=== PATIENT | male | born 1945 | race Caucasian/White ===

== ENCOUNTER 2018-05-31 18:02 | Emergency (ER) | payer MEDICARE, BC ==
[~2018-05-31] VITALS: Ht 172.7 cm; Wt 80.9 kg
[2018-05-31 18:03] VITALS: Ht 172.7 cm; Wt 80.9 kg
[2018-05-31] MEDS ORDERED: NORVASC2.5 MG (18:04)
[2018-05-31] MEDS ORDERED: COZAAR25 MG (18:04)
[2018-05-31] MEDS ORDERED: CATAPRES0.1 MG (18:04)
[2018-05-31 18:17] LABS: BASOPHILS 0.4 % (0-2); EOSINOPHILS 2.1 % (0-7); HEMATOCRIT 39.8 % (42.0-54.0); HEMOGLOBIN 13.4 g/dL (13.5-17.5); IMMATURE GRANULOCYTES 0.6 % (0-5); LYMPHOCYTES 16.6 % (15-50); MCH 30.2 pg (26.0-34.0); MCHC 33.7 g/dL (31.0-37.0); MCV 89.8 fL (80.0-100.0); MONOCYTES 8.1 % (2-11); NEUTROPHILS 72.2 % (40-80); PLATELET COUNT 187 10x3/uL (130-400); RBC 4.43 10x6/uL (4.20-6.10); RDW 12.2 % (11.5-14.5); WBC 8.3 10x3/uL (4.8-10.8)
[2018-05-31 18:37] LABS: ALBUMIN 3.5 g/dL (3.4-5.0); ALKALINE PHOSPHATASE 54 U/L (46-116); ALT (SGPT) 20 U/L (10-68); CALC OSMOLALITY 281 mosm/kg (275-300); CALCIUM 8.8 mg/dL (8.5-10.1); CHLORIDE - SERUM 102 mmol/L (98-107); GLUCOSE 193 mg/dL (74-106); POTASSIUM - SERUM 4.1 mmol/L (3.5-5.1); PROTEIN - SERUM 7.1 g/dL (6.4-8.2); SODIUM 138 mmol/L (136-145); UREA NITROGEN 15 mg/dL (7-18); eGFR NON AFRICAN AMERICAN 78 mL/min (90-120)
[2018-05-31 18:49] LABS: CKMB 0.6 U/L (0.0-3.6); CREATINE KINASE 58 UL (21-232); PRO BNP 117 pg/mL (0-125)
[2018-05-31 19:06] LABS: TROPONIN-I < 0.017 ng/mL (0.000-0.060)
[2018-05-31] MEDS ORDERED: TORADOL10 MG PO (20:07)
[2018-05-31] MEDS ORDERED: OMEPRAZOLE40 MG PO (20:07)
[2018-05-31 20:20] VITALS: BP 123/68
== END 2018-05-31 20:20 | disposition home or self-care (01) ==
LOC: D.ER 18:02
PROVIDERS: Family Medicine
DX: R07.9 Chest pain, unspecified (principal); R73.9 Hyperglycemia, unspecified; K21.9 Gastro-esophageal reflux disease without esophagitis; I10 Essential (primary) hypertension; S46.811A Strain of other muscles, fascia and tendons at shoulder and upper arm level, right arm, initial encounter; X58.XXXA Exposure to other specified factors, initial encounter; Y93.89 Activity, other specified; Y92.89 Other specified places as the place of occurrence of the external cause; R00.0 Tachycardia, unspecified